=== PATIENT | male | born 1980 | race Caucasian/White ===

== ENCOUNTER 2018-07-30 14:45 | Emergency (ER) | payer OTHER ==
[~2018-07-30] VITALS: Ht 182.9 cm; Wt 90.7 kg
[2018-07-30 14:55] VITALS: BP 163/81
--- NOTE | 2018-07-30 15:00 | NUR ---
C/O BACK S/P LIFTING YESTERDAY, NAD NOTED, VSS, RESP EVEN AND UNLABORED, PT WAS PUT ON MONITOR. WAITING FOR MD DERAS.
[2018-07-30] MEDS ORDERED: IBUPROFEN 400 MG TABLET ONE (15:39)
[2018-07-30] MEDS ORDERED: HYDROCODONE/APAP 5/325MG 1 EACH TABLET ONE (15:39)
[2018-07-30] MEDS ORDERED: HYDROCODONE/APAP 5/325MG 1 EACH TABLET PO ONE (16:00)
[2018-07-30] MEDS ORDERED: IBUPROFEN 400 MG TABLET PO ONE (16:00)
== END 2018-07-30 16:06 | disposition home or self-care (01) ==
LOC: ER 14:48
DX: M54.6 Pain in thoracic spine (principal)
CPT/HCPCS: A4606; Z7610

== ENCOUNTER 2018-11-17 02:40 | Emergency (ER) | payer OTHER ==
[~2018-11-17] VITALS: Ht 182.9 cm; Wt 93.0 kg
--- NOTE | 2018-11-17 03:55 | NUR ---
BIB SELF C/O RIGHT FOOT PAIN X 3 WEEKS. STATES HE STEPPED ON A SCREW AND HAS BEEN TREATING AT HOME WITH HYDROGEN PEROXIDE AND CREAM. PAIN LEVEL 10. AOX4, HR 110, BP 131/94. -FEVER, DENIES SOB, DIZZINESS, WEAKNESS, N/V/D. SKIN WARM TO TOUCH, DRY, INTACT. PT IS AMBULATORY. READY FOR EVAL.
[2018-11-17] MEDS ORDERED: IBUPROFEN 400 MG TABLET PO ONE (04:00)
[2018-11-17] MEDS ORDERED: TDAP [DIPH/PERTUSSIS/TET] 0.5 ML VIAL IM ONE ×2 (04:00)
[2018-11-17] MEDS ORDERED: IBUPROFEN 400 MG TABLET ONE (04:00)
--- NOTE | 2018-11-17 04:03 | NUR ---
RADIOLOGY AT BEDSIDE
--- NOTE | 2018-11-17 04:20 | NUR ---
Patient discharged to home in stable condition. Written and verbal after care instructions given. Patient verbalizes understanding of instruction.
[2018-11-17 04:58] VITALS: BP 128/82
== END 2018-11-17 04:59 | disposition home or self-care (01) ==
LOC: ER 02:41
DX: S91.331A Puncture wound without foreign body, right foot, initial encounter (principal); F17.200 Nicotine dependence, unspecified, uncomplicated; Z98.890 Other specified postprocedural states; W22.8XXA Striking against or struck by other objects, initial encounter; Y93.89 Activity, other specified; Y92.89 Other specified places as the place of occurrence of the external cause; Y99.8 Other external cause status
CPT/HCPCS: 73630; 90471; 90715; 99283; A4606; Z7610